=== PATIENT | female | born 1990 | race Caucasian/White ===

== ENCOUNTER 2022-01-06 06:36 | Emergency (ER) | payer SELFPAY ==
[2022-01-06 07:03] VITALS: BP 113/76; PULSE 90; RESP 18; TEMP 97.2; BMI 18.7
[2022-01-06] MEDS ORDERED: ACETAMINOPHEN 500 MG TABLET (FP) PO ONE (07:45)
[2022-01-06] MEDS ORDERED: ACETAMINOPHEN 500 MG TABLET (FP) ONE (07:55)
== END 2022-01-06 08:13 | disposition home or self-care (01) ==
LOC: JER 06:36
DX: R09.81 Nasal congestion (principal); J02.9 Acute pharyngitis, unspecified; R51.9 Headache, unspecified
CPT/HCPCS: 0241U-QW; 99283-25